=== PATIENT | male | born 1955 | race Caucasian/White ===

== ENCOUNTER 2021-09-14 21:32 | Inpatient (IN) | payer MEDICARE, OTHER ==
[~2021-09-14] VITALS: Ht 180.3 cm; Wt 99.8 kg
[2021-09-14 23:35] LABS: HEMOGLOBIN 13.6 gm/dl (14.0-17.5); RED BLOOD COUNT 4.58 M/UL (4.20-5.50); WHITE BLOOD COUNT 7.1 K/UL (4.5-11.0)
[2021-09-15 00:03] LABS: BUN/CREATININE RATIO 13 (0-10)
[2021-09-15] MEDS ORDERED: METFORMIN HCL500 M2 PO (04:38)
[2021-09-15] MEDS ORDERED: BAYER CHEWABLE81 MG PO (04:39)
[2021-09-15] MEDS ORDERED: VITAMIN D325 MC6 PO (04:40)
[2021-09-15] MEDS ORDERED: LOPRESSOR 25 MG25 MG PO ×2 (04:40→04:41)
[2021-09-15] MEDS ORDERED: ZINC50 M2 PO (04:41)
[2021-09-15] MEDS ORDERED: PROTONIX40 MG PO (04:42)
[2021-09-15] MEDS ORDERED: ZYRTEC10 MG PO (04:43)
[2021-09-15] MEDS ORDERED: CRESTOR5 MG PO (04:43)
[2021-09-15] MEDS ORDERED: COQ-1030 MG PO (10:36)
[2021-09-16 03:51] LABS: HEMOGLOBIN 13.3 gm/dl (14.0-17.5); RED BLOOD COUNT 4.51 M/UL (4.20-5.50)
[2021-09-16 03:53] LABS: WHITE BLOOD COUNT 15.8 K/UL (4.5-11.0)
[2021-09-16 04:13] LABS: BUN/CREATININE RATIO 19 (0-10)
[2021-09-16] MEDS ORDERED: NITROGLYCERIN0.4 MG SL (11:15)
[2021-09-16] MEDS ORDERED: BRILINTA 90 MG90 MG PO (11:15)
[2021-09-16] MEDS ORDERED: LOPRESSOR 25 MG25 MG PO (11:15)
[2021-09-16] MEDS ORDERED: CRESTOR5 MG PO (11:21)
== END 2021-09-16 14:54 | disposition home or self-care (01) | DRG 247 ==
LOC: ER1 21:32 → CDU 09-15 00:38 → PROG CARE 09-15 00:38
PROVIDERS: Internal Medicine Cardiovascular Disease; Physician Assistant Medical; ADMIT Internal Medicine
PROC: 027034Z Dilation of Coronary Artery, One Artery with Drug-eluting Intraluminal Device, Percutaneous Approach (ICD-10-PCS; principal; 2021-09-15)
PROC: B241ZZ3 Ultrasonography of Multiple Coronary Arteries, Intravascular (ICD-10-PCS; 2021-09-15)
PROC: 4A023N7 Measurement of Cardiac Sampling and Pressure, Left Heart, Percutaneous Approach (ICD-10-PCS; 2021-09-15)
PROC: B2111ZZ Fluoroscopy of Multiple Coronary Arteries using Low Osmolar Contrast (ICD-10-PCS; 2021-09-15)
PROC: B24BZZZ Ultrasonography of Heart with Aorta (ICD-10-PCS; 2021-09-15)
DX: I21.4 Non-ST elevation (NSTEMI) myocardial infarction (principal); I25.10 Atherosclerotic heart disease of native coronary artery without angina pectoris; I10 Essential (primary) hypertension; Z20.822 Contact with and (suspected) exposure to COVID-19; K21.9 Gastro-esophageal reflux disease without esophagitis; E78.5 Hyperlipidemia, unspecified; E11.9 Type 2 diabetes mellitus without complications; Z95.5 Presence of coronary angioplasty implant and graft; Z79.01 Long term (current) use of anticoagulants; Z79.82 Long term (current) use of aspirin; Z79.84 Long term (current) use of oral hypoglycemic drugs; Z90.49 Acquired absence of other specified parts of digestive tract; Z98.890 Other specified postprocedural states; Z87.891 Personal history of nicotine dependence; Z88.1 Allergy status to other antibiotic agents; Z91.041 Radiographic dye allergy status; Z72.89 Other problems related to lifestyle
CPT/HCPCS: ECHO; 36415; 71045; 80048; 80053; 80061; 82550; 82553; 82962; 83036; 83880; 84484; 85025; 85027; 85347; 85730; 92978; 93005; 93306; 96374; 96375; 99152; 99153; 99285; C1725; C1753; C1769; C1874; C1887; C1894; C9600; J0461; J1200; J1644; J2250; J2270; J2405; J2930; J3010; Q9967